=== PATIENT | male | born 1970 | race Two or more races ===

== ENCOUNTER 2024-03-16 10:20 | Emergency (ER) | payer OTHER ==
[~2024-03-16] VITALS: Ht 160 cm; Wt 60.8 kg
[2024-03-16 14:12] VITALS: BP 137/67; TEMP 98.7; O2SAT 100
== END 2024-03-16 14:12 | disposition home or self-care (01) ==
LOC: ER 11:16
DX: S06.0X0A Concussion without loss of consciousness, initial encounter (principal); Z60.2 Problems related to living alone; W20.8XXA Other cause of strike by thrown, projected or falling object, initial encounter; Y93.89 Activity, other specified; Y92.89 Other specified places as the place of occurrence of the external cause; Y99.8 Other external cause status
CPT/HCPCS: 70450-TC